=== PATIENT | female | born 1990 | race Caucasian/White ===

== ENCOUNTER → 2016-12-19 | Outpatient (CLI) | payer OTHER ==
[~2016-12-19] MED LIST: AMIT50TA3 PO; BCPILLS PO; CNC/18 PO; CYCL5TAB PO; MULTTAB58 PO; SERT50TA PO
[2016-12-19 11:14] LABS: CHOLESTEROL/HDL RATIO 2.2
[2016-12-19 11:24] LABS: PROLACTIN 12.64 ng/mL
== END | disposition home or self-care (01) ==
LOC: C.LABBC 07:43
PROVIDERS: ATTEND Physician Assistant
DX: Z00.00 Encounter for general adult medical examination without abnormal findings (principal); N94.6 Dysmenorrhea, unspecified

== ENCOUNTER → 2017-05-25 | Outpatient (CLI) | payer OTHER ==
[2017-05-25 17:18] LABS: URINE APPEARANCE CLEAR (CLEAR); URINE BILIRUBIN NEG (NEG); URINE COLOR YELLOW; URINE EPITHELIAL CELL AUTO 20-30 /lpf (0-5); URINE NITRITE NEG (NEG); URINE SPECIFIC GRAVITY 1.021 (1.000-1.030); UROBILINOGEN NEG (NEG)
[2017-05-25 17:31] LABS: MANUAL MICROSCOPIC REQUIRED? NO; REVIEW REQ? NO
== END | disposition home or self-care (01) ==
LOC: C.LABSPEC 16:33
PROVIDERS: ATTEND Obstetrics & Gynecology
DX: Z34.01 Encounter for supervision of normal first pregnancy, first trimester (principal)

== ENCOUNTER → 2017-05-31 | Outpatient (CLI) | payer OTHER ==
[2017-05-31 16:38] LABS: BASO % 0.3 %; BASO ABS # 0.03 K/uL (0-0.2); COMPLETE YES; EOS % 0.3 %; HEMATOCRIT 37.3 % (37-47); IG% 0.3 %; LYMPH % 21.1 %; LYMPH ABS # 2.27 K/uL (1.2-3.4); MEAN CELL VOLUME 86.3 fL (80-100); MEAN CORPUSCULAR HEMOGLOBIN 29.6 pg (25-34); MEAN CORPUSCULAR HGB CONC 34.3 g/dl (32-36); MONO % 6.6 %; NEUT % 71.4 %; PLATELET COUNT 182 K/uL (130-400); RED BLOOD COUNT 4.32 M/uL (4.2-5.4); WHITE BLOOD COUNT 10.75 K/uL (4.8-10.8)
[2017-06-06 02:56] LABS: CHLAMYDIA TRACH RNA*** NOT DETECTED (NOT DETECTED); GC (NEIS GONORRHOEAE)RNA** NOT DETECTED (NOT DETECTED)
== END | disposition home or self-care (01) ==
LOC: C.LAB1850 14:57
PROVIDERS: ATTEND Obstetrics & Gynecology
DX: Z34.01 Encounter for supervision of normal first pregnancy, first trimester (principal)

== ENCOUNTER → 2017-10-16 | Outpatient (CLI) | payer OTHER ==
[2017-10-16 12:23] LABS: HEMATOCRIT 32.5 % (37-47); HEMOGLOBIN 10.8 g/dL (12.0-16.0)
== END | disposition home or self-care (01) ==
LOC: C.LAB1850 11:10
PROVIDERS: ATTEND Obstetrics & Gynecology
DX: Z34.03 Encounter for supervision of normal first pregnancy, third trimester (principal)

== ENCOUNTER → 2017-12-26 | Outpatient (CLI) | payer OTHER ==
[~2017-12-26] MED LIST changes: +PRENTAB26 PO
== END | disposition home or self-care (01) ==
LOC: C.LABBC 08:38
PROVIDERS: ATTEND Physician Assistant Medical
DX: Z00.00 Encounter for general adult medical examination without abnormal findings (principal)

== ENCOUNTER 2017-12-31 21:52 | Inpatient (IN) | payer OTHER ==
[~2017-12-31] VITALS: Ht 165.1 cm; Wt 74.8 kg
[~2017-12-31 21:52] MED LIST changes: -PRENTAB26 PO
[2017-12-31] MEDS ORDERED: LACTATED RINGER'S 1000ML 1,000 ML IV PRN (22:14)
[2017-12-31] MEDS ORDERED: PENICILLIN G POTASSIUM IV 6 MU in DEXTROSE 5% 250ML 250 ML IV ONE (22:15)
[2017-12-31] MEDS: LACTATED RINGER'S 1000ML 1,000 ML IV SCH (22:26)
[2017-12-31 22:58] LABS: HEMATOCRIT 34.1 % (37-47); HEMOGLOBIN 12.1 g/dL (12.0-16.0); MEAN CELL VOLUME 88.1 fL (80-100); MEAN CORPUSCULAR HEMOGLOBIN 31.3 pg (25-34); MEAN CORPUSCULAR HGB CONC 35.5 g/dl (32-36); MEAN PLATELET VOLUME 14.1 fL (7.4-10.4); PLATELET COUNT 116 K/uL (130-400); RED CELL DISTRIBUTION WIDTH CV 13.2 % (11.5-14.5); RED CELL DISTRIBUTION WIDTH SD 42.3 fL (36.4-46.3); WHITE BLOOD COUNT 19.85 K/uL (4.8-10.8)
[2017-12-31 23:08] VITALS: Ht 165.1 cm; Wt 74.8 kg
[2017-12-31] MEDS ORDERED: PRENTAB26 PO (23:08)
[2017-12-31] MEDS ORDERED: BUPIVACAINE 0.25% 30 ML VIAL ONE (23:47)
[2017-12-31] MEDS ORDERED: FENTANYL CITRATE INJ 50 MCG/1 ML 2 ML VIAL ONE (23:47)
[2017-12-31] MEDS ORDERED: EpHEDrine SULFATE INJ 50 MG/ML AMP ONE (23:47)
[2017-12-31] MEDS ORDERED: FENTANYL 2MCG/ML ROPIV 1.25MG/ML 100ML BAG ONE (23:48)
[2018-01-01] MEDS: LACTATED RINGER'S 1000ML 1,000 ML IV SCH ×2 (00:42→08:27)
[2018-01-01] MEDS ORDERED: LACTATED RINGER'S 1000ML 500 ML IV PRN ×2 (00:44→07:18)
[2018-01-01] MEDS ORDERED: NALOXONE HCL INJ 1 MG in SODIUM CHLORIDE 0.9% 1000ML 1,000 ML IV PRN ×4 (00:44)
[2018-01-01] MEDS ORDERED: NALBUPHINE HCL INJ 10 MG/ML 1ML AMP IV PRN (00:45)
[2018-01-01] MEDS ORDERED: NALOXONE HCL INJ 0.4 MG/1 ML VIAL/CARP IV PRN (00:45)
[2018-01-01] MEDS ORDERED: EpHEDrine SULFATE INJ 50 MG/ML AMP IV PRN (00:45)
[2018-01-01] MEDS ORDERED: ONDANSETRON INJ 2 MG/ML 2 ML VIAL IV PRN (00:45)
[2018-01-01] MEDS ORDERED: PROMETHAZINE HCL INJ 25 MG in SODIUM CHLORIDE 0.9% 50ML 50 ML IV PRN (00:45)
[2018-01-01] MEDS ORDERED: DiphenhydrAMINE HCL 50 MG/ML VIAL IV PRN (00:45)
[2018-01-01] MEDS: PENICILLIN G POTASSIUM IV 3 MU in DEXTROSE 5% 100ML 100 ML IV PRN ×2 (02:21→06:31)
[2018-01-01] MEDS ORDERED: OXYTOCIN 30 UNITS/500ML NSS IV ONE (03:06)
[2018-01-01] MEDS: FENTANYL 2MCG/ML ROPIV 1.25MG/ML 100ML BAG EPI PRN ×2 (07:05→09:17)
[2018-01-01] MEDS ORDERED: OXYTOCIN 30 UNITS/500ML NSS IV PRN ×2 (07:30→10:45)
[2018-01-01] MEDS ORDERED: SUPERCREAM 0.870 % 15GM JAR EXT PRN (10:45)
[2018-01-01] MEDS ORDERED: BENZOCAINE 20% AER SPR 82.5 GM CAN EXT PRN (10:45)
[2018-01-01] MEDS ORDERED: HYDROCORTISONE ACETATE 25 MG SUPP PR PRN (10:45)
[2018-01-01] MEDS ORDERED: IBUPROFEN 600 MG TAB PO PRN (10:45)
[2018-01-01] MEDS ORDERED: LANOLIN OINT EXT PRN (10:45)
[2018-01-01] MEDS ORDERED: OXYCODONE/ACETAMINOPHEN 5-325 TAB PO PRN (10:45)
[2018-01-01] MEDS ORDERED: ACETAMINOPHEN 325 MG TAB PO PRN (10:45)
--- NOTE | 2018-01-01 10:57 | Anesthesia Procedure Note ---
Anesthesia Epidural Removal Nt Date & Time Jan 01, 2018 at 10:57 Vital Signs Pain Intensity: 1 Notes Mental Status: alert / awake / arousable, participated in evaluation Nausea / Vomiting: adequately controlled Pain: adequately controlled Airway Patency, RR, SpO2: stable & adequate BP & HR: stable & adequate Hydration State: stable & adequate Neuraxial Anesthesia: was administered Anesthetic Complications: no major complications apparent, pt satisfied with anesthetic care Epidural: removed without complications, with tip intact
--- NOTE | 2018-01-01 11:49 | Vaginal Delivery Summary ---
Vaginal Delivery Summary Procedure: Spontaneous vaginal delivery, repair of bilateral labial lacerations Surgeon: Dr. Wood Predelivery diagnoses: 27-year-old at 38 weeks 6 days with spontaneous labor, group B strep positive Postdelivery diagnoses: Same Complications: None Estimated blood loss: 300 mL Findings: Viable female , Apgars 8 and 9, weight pending please see nursery records. Description of delivery: The patient progressed to complete labored down, pushed for approximately 2-1/2 hours. She then was repositioned in an attempt to allow the baby to progress down into the pelvis, and began to push again. Patient spontaneously delivered a viable from the cephalic presentation. The baby delivered with the head in right occiput posterior position, bilateral shoulders delivered, followed by body. Cord was noted. The baby is placed on mother's abdomen, a large amount of meconium was noted, a spontaneous cry was heard. Cord was doubly clamped and cut, cord segment was retained for cord gases, cord blood was obtained for cord blood donation. Cord blood was then obtained for the lab. The placenta was then delivered spontaneously intact with three-vessel cord. Pitocin was given, the uterus became firm. The cervix vagina and perineum were inspected, bilateral superficial labial lacerations were noted and repaired with 3-0 Vicryl. Excellent hemostasis was observed. The patient tolerated the procedure well, she and baby are recovering in stable and good condition in the room. Sponge, needle counts were correct 2 at the conclusion of the case.
[2018-01-01 13:20] VITALS: BP 121/72; PULSE 102; TEMP 36.9
[2018-01-01 15:30] VITALS: BP 116/69; PULSE 80; TEMP 36.8
[2018-01-01 19:30] VITALS: BP 127/72; PULSE 86; TEMP 36.8
[2018-01-01] MEDS: DOCUSATE SODIUM 100 MG CAP PO SCH (19:37)
[2018-01-01 23:00] VITALS: BP 113/71; PULSE 75; TEMP 36.8
[2018-01-02 03:45] VITALS: BP 115/69; PULSE 76; TEMP 36.8
[2018-01-02 06:24] LABS: HEMATOCRIT 31.5 % (37-47)
[2018-01-02 08:00] VITALS: BP 115/74; PULSE 76; TEMP 36.8; O2SAT 95
--- NOTE | 2018-01-02 08:25 | OB/GYN Progress Note ---
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 Subjective conversation w/ patient Ambulation: ambulating normally Voiding: no voiding problems Passing Gas: Yes Diet Tolerance: Regular Diet Lochia: Moderate Feeding Type: Breast Feeding Pain: Improving Review of Systems Constitutional: No fever, No chills Respiratory: No cough, No shortness of breath Cardiac: No chest pain, No palpitations Female : No dysuria Objective Vital Signs Date Time Temp Pulse Resp B/P (MAP) Pulse Ox O2 Delivery O2 Flow Rate FiO2 01/02/18 08:00 36.8 76 16 115/74 (88) 95 Room Air 01/02/18 03:45 36.8 76 18 115/69 (84) Room Air 01/01/18 23:00 36.8 75 18 113/71 (85) Room Air 01/01/18 19:30 36.8 86 18 127/72 (90) Room Air 01/01/18 19:30 Room Air 01/01/18 15:30 36.8 80 16 116/69 (85) Room Air 01/01/18 15:30 Room Air 01/01/18 13:20 Room Air 01/01/18 13:20 36.9 102 20 121/72 (88) Room Air Physical Exam General Appearance: WELL-APPEARING, NO APPARENT DISTRESS Respiratory/Chest: lungs clear, normal breath sounds, no respiratory distress, no accessory muscle use Cardiovascular: regular rate, rhythm, no murmur Abdomen: soft Fundus: Firm (At umbilicus) Extremities: no calf tenderness Laboratory Results Last 24 Hours Test 01/02/18 06:11 Hemoglobin 11.0 g/dL Hematocrit 31.5 % Assessment and Plan Day Number: 1 Continue Routine Care: 27 yo , GBS+, O+ Analgesia PRN Escalate diet as needed Ambulation encouraged Resident Physician Supervision Note: I was present with Dr. Brown during the history and exam. I discussed the case with the resident and agree with the findings and plan as documented in the note. Any exceptions or clarifications are listed here: PPD#1 doing well. Anticipate discharge home tomorrow. Documented By: Barbara Wood
[2018-01-02] MEDS: DOCUSATE SODIUM 100 MG CAP PO SCH ×2 (09:48→20:04)
[2018-01-02 15:15] VITALS: BP 115/69; PULSE 82; TEMP 36.8
--- NOTE | 2018-01-02 17:20 | Discharge Instructions ---
Discharge Instructions Date of Service Jan 02, 2018. Admission Reason for Admission: Normal Labor Discharge Discharge Diagnosis / Problem: recovery from normal delivery Discharge Goals Goal(s): Routine recovery after delivery Medications Continue Dispensed Medications: supercream, dermaplast, tucks, lansinoh Activity Recommendations Activity Limitations: per Instructions/Follow-up section . Instructions / Follow-Up Instructions / Follow-Up ACTIVITY RECOMMENDATIONS: * Gradual return to full activity over the next 2-3 weeks. * No lifting - nothing heavier than baby over the next 2-3 weeks. * Do not engage in vigorous exercise, sexual activity or sports until cleared by your physician. * Do not drive or operate any motorized equipment until cleared by your physician. * You may shower/bathe daily. MEDICATIONS: For discomfort or pain, you may use Acetaminophen (Tylenol), Ibuprofen (Advil), or Naproxen (Aleve) following the package directions. For constipation you may use Colace following the package directions. BREAST CARE: If you are not breast feeding: * Wear a supportive bra 24 hours a day for one to two weeks. * Avoid stimulating your breasts and nipples as much as possible during the first few weeks after delivery. * When taking a shower, have the warm water hit your back, not breasts. * When your breasts feel full, apply ice packs. Usually three to four times a day helps ease the discomfort. * Take a mild pain medication (Tylenol / Motrin) when you are uncomfortable. If breast feeding: * Use breast milk to lubricate nipples. Lansinoh cream may be used for sore nipples. You do not need to remove cream prior to breast feeding. If using a different brand of cream, check the label for directions regarding removal of cream prior to nursing. * Wear a supportive bra. * If having problems with breasts or breast feeding, call a foreign law consultant or your health care provider. EPISIOTOMY CARE: After delivery, if you have an episiotomy (stitches), the following steps will ease discomfort and aid healing. * For the first 24 hours after delivery, place ice packs next to your episiotomy to help reduce swelling. * After the first 24 hour-period, sitz baths, either portable or in the tub, are suggested. A shower with a shower arm sprayed over the episiotomy may be comforting. * April care should be done after each voiding and bowel movement. Squirt warm water from a plastic bottle over the perineum (region of the body between the anus and urinary opening) and pat dry. * Use Dermoplast to ease discomfort. Shake container. [place] directly over the episiotomy. Place a Tucks on a clean sanitary pad next to your episiotomy. SPECIAL CARE INSTRUCTIONS: When you are discharged from the hospital, it is important for you to follow the instructions listed below: * During the first week at home, you should be able to care for yourself and your baby. In addition, the usual light household activities are encouraged. * Limit your activities to the way you feel. Do not try to clean the house or move furniture. Be sensible. * If you actively engage in sports and have done so up until the time of your delivery, you may resume these activities as soon as you feel able. This may take up to one month or even longer. Use good judgment. * Continue to take your vitamins for at least six weeks after the of your baby. * Your diet need not be limited unless you were on a special diet before your delivery. Breast-feeding mothers need around 2500 calories per day and at least 64-80 ounces of fluid per day (8 to 10 glasses). * You should eat foods from the four major food groups. Crash diets or fad diets are to be avoided. Eating lean meats, fresh fruits and vegetables, low-fat dairy products, high fiber foods and a regular exercise program, will help you get back to your pre- weight without putting your health at risk. * Constipation is sometimes a problem after delivery. Take a mild laxative as needed. If breast feeding, Milk of Magnesia is acceptable to use. You may use a suppository or Fleets enema if no episiotomy. * A daily shower or tub bath is suggested. Be sure to thoroughly and gently dry the perineum. * A bloody vaginal discharge will usually continue until around four weeks post . A small amount of bleeding may continue for as long as six weeks. Vaginal discharge changes from the bright red bleeding after delivery to pink then brownish and finally yellowish-pink before becoming white and disappearing. * Bleeding may increase with activity. Your first period may come in 4-8 weeks. If you are breast feeding, your period may be delayed even longer. * [place] (sex) can begin whenever both you and your partner feel comfortable and do not have any form of genital infection. It is recommended that you wait at least six weeks for internal and external healing to occur. If you have questions, please talk to your health care practitioner. A condom should be used to prevent infection and . * Foreplay, gentle intercourse and lubrication is very important the first several times to prevent pain. A water-based lubricant such as K-Y jelly or Astroglide may be used. * If you have RH negative blood and your baby is RH positive, you will receive RHOGAM by injection prior to discharge. The nurse will give you a card to keep with you that has the date and place that you received RHOGAM after delivery. * During your care, you had a Rubella screen done to check for the presence of rubella antibodies in your blood. If your test was negative, you will receive a Rubella vaccine prior to discharge. This vaccine may cause a fever, soreness at the injection site and flu-like symptoms. If these symptoms persist, notify your health care practitioner. is not advised for one month after a Rubella vaccine. * Verbalizes understanding of car seat law as reviewed with patient nursing. * Car Seat hand-out given and reviewed with patient by nursing. * Shaken baby information reviewed with patient by nursing. Call you doctor if: * Heavy bleeding (saturating several pads an hour) or passing clots the size of your fist. * A fever >101 degrees F (38.3 degrees C) on two occasions four hours apart and /or chills. * Unusual pain in the pelvic or vaginal areas. * "Baby Blues" lasting longer than two weeks. If you have any questions or concerns, call your health care practitioner at . FOLLOW UP VISIT: * Please call the office at to schedule a 6 week examination. It is important you keep this appointment. It is important for you to make arrangements for either yearly or twice yearly check-ups thereafter. Current Hospital Diet Patient's current hospital diet: Regular OB Diet Discharge Diet Recommended Diet: Regular OB Diet Pending Studies Studies pending at discharge: no Laboratory Results Lipid Panel Test 12/26/17 08:39 Range/Units Triglycerides Level 254 H 0-150 mg/dl Cholesterol Level 314 H 0-200 mg/dl HDL Cholesterol 100 mg/dl Cholesterol/HDL Ratio 3.1 LDL Cholesterol, Calculated 163 mg/dl Medical Emergencies . Who to Call and When: Medical Emergencies: If at any time you feel your situation is an emergency, please call 911 immediately. . Non-Emergent Contact Non-Emergency issues call your: Public Relations Writer . . "Provider Documentation" section prepared by [facility] Drug Monitoring Program Search Results: no issues identified
[2018-01-02] MEDS ORDERED: BISACODYL 5 MG TABEC PO SCH (20:00)
[2018-01-02 23:00] VITALS: BP 110/67; PULSE 75; TEMP 36.7
--- NOTE | 2018-01-03 07:11 | OB/GYN Progress Note ---
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 Subjective conversation w/ patient Ambulation: ambulating normally Voiding: no voiding problems Passing Gas: Yes Diet Tolerance: Regular Diet Lochia: Moderate Feeding Type: Bottle Feeding Pain: Improving Review of Systems Constitutional: No fever, No chills Respiratory: No cough, No shortness of breath Cardiac: No chest pain, No palpitations Female : No dysuria Objective Vital Signs Date Time Temp Pulse Resp B/P (MAP) Pulse Ox O2 Delivery O2 Flow Rate FiO2 01/02/18 23:00 Room Air 01/02/18 23:00 36.7 75 18 110/67 (81) Room Air 01/02/18 15:15 36.8 82 16 115/69 (84) Room Air 01/02/18 08:00 36.8 76 16 115/74 (88) 95 Room Air 01/02/18 07:45 Room Air Physical Exam General Appearance: WELL-APPEARING, NO APPARENT DISTRESS Respiratory/Chest: lungs clear, normal breath sounds, no respiratory distress, no accessory muscle use Cardiovascular: regular rate, rhythm, no murmur Abdomen: soft Fundus: Firm (at umbilicus) Extremities: normal inspection, no calf tenderness Assessment and Plan Day Number: 2 Continue Routine Care: Resident Physician Supervision Note: I was present with Dr. Brown during the history and exam. I discussed the case with the resident and agree with the findings and plan as documented in the note. Any exceptions or clarifications are listed here: [None] Documented By: Yen Sidhu 27 yo , GBS+, O+ Analgesia PRN Escalate diet as needed Ambulation encouraged. Discharge likely today
[2018-01-03 07:33] VITALS: BP 119/76; PULSE 83; TEMP 36.7; O2SAT 98
[2018-01-03] MEDS: DOCUSATE SODIUM 100 MG CAP PO SCH (08:00)
[2018-01-03 15:50] VITALS: BP 122/74; PULSE 82; TEMP 36.8
[2018-01-03 19:50] VITALS: BP_DIAS 74; PULSE 82; TEMP 36.8
== END 2018-01-03 19:50 | disposition home or self-care (01) | DRG 775 ==
LOC: C.OPB 21:52 → C.LD 21:53 → C.OPB 22:22 → C.OBG 01-01 13:20
PROVIDERS: ADMIT Obstetrics & Gynecology; ATTEND Obstetrics & Gynecology
PROC: 10E0XZZ Delivery of Products of Conception, External Approach (ICD-10-PCS; principal; 2018-01-01)
PROC: 0HQ9XZZ Repair Perineum Skin, External Approach (ICD-10-PCS; principal; 2018-01-01)
DX: O77.0 Labor and delivery complicated by meconium in amniotic fluid (principal); O70.0 First degree perineal laceration during delivery; O99.824 Streptococcus B carrier state complicating childbirth; Z3A.38 38 weeks gestation of pregnancy; Z37.0 Single live birth